=== PATIENT | female | born 1985 | race African-American/Black ===

== ENCOUNTER 2018-08-08 08:43 | Emergency (ER) | payer BC ==
[~2018-08-08] VITALS: Ht 172.7 cm; Wt 95.7 kg
[~2018-08-08 08:43] MED LIST: AFRIN15 ML NS; DOXYCYCLINE 10100 MG PO; FIORICET 50-321 EACH PO; LORATIDINE 10 M10 M1 PO; MEDROLDOSEPACK PO; NAPROSYN500 MG PO; NOHOMEMEDICATIONS; PREDNISONE50 MG PO; TESSALON PERLE100 MG PO; ULTRAM 50MG TAB50 MG PO; ZPAK PO
[2018-08-08 09:12] VITALS: BP 146/98
--- NOTE | 2018-08-08 17:03 | EKG ---
[place] [address] ELECTROCARDIOGRAM REPORT Name: YANET NEUMANN Room: [facility] [place]#: [id number] Admission: 08/08/18 Attend Phys: Discharge: 08/08/18 Date of : 81 Report #: [id number] THIS REPORT FOR: //name// [facility] ED Test Date: 2018-08-08 Test Time: 08:53:29 Pat Name: YANET NEUMANN Department: Room: Gender: F Organizational Development Director: Caitlin BUCKLEY : 1985 Requested By: Oleksandr Higginbotham Order Number: [id number] MD: Reji Sue Measurements Intervals [place] Rate: 57 P: 49 VT: 209 QRS: 1 QRSD: 90 T: -1 QT: 417 QTc: 406 Interpretive Statements Sinus rhythm LVH by voltage Borderline T abnormalities, diffuse leads Baseline wander in lead(s) V5 Compared to ECG 11/26/2012 11:48:43 Left ventricular hypertrophy now present T-wave abnormality still present Electronically Signed On 08-08-2018 17:03:03 CDT by Reji Sue [email or web address] <ELECTRONICALLY SIGNED> By: Reji Sue MD, FACC 08/08/18 1703 0853 0853 Reji Sue MD, FAC /EPI
[2018-08-28] MEDS ORDERED: PROMETH-CODEIN 65 ML PO (05:09)
== END 2018-08-08 09:14 | disposition home or self-care (01) ==
LOC: M.ERS 08:43
DX: R51 Headache (principal); R03.0 Elevated blood-pressure reading, without diagnosis of hypertension; R07.9 Chest pain, unspecified; M25.519 Pain in unspecified shoulder; R06.02 Shortness of breath

== ENCOUNTER → 2018-08-28 | Emergency (ER) | payer BC ==
[~2018-08-28] VITALS: Ht 172.7 cm; Wt 104.3 kg
[~2018-08-28] MED LIST changes: +PROMETH-CODEIN 65 ML PO
[2018-08-28 04:54] VITALS: BP 164/100
== END ==
LOC: M.ERS 04:51
DX: J06.9 Acute upper respiratory infection, unspecified (principal); G43.909 Migraine, unspecified, not intractable, without status migrainosus; Z98.890 Other specified postprocedural states

== ENCOUNTER 2018-09-20 12:25 | Emergency (ER) | payer OTHER ==
[~2018-09-20] VITALS: Ht 172.7 cm; Wt 95.3 kg
[2018-09-20] MEDS ORDERED: ERYTHROMYCIN E3.5 G3 OPHTHALMIC (12:57)
[2018-09-20 13:10] VITALS: BP 136/101
[2018-09-20] MEDS ORDERED: OFLOXACIN5 M1 OTIC (13:23)
== END 2018-09-20 13:10 | disposition home or self-care (01) ==
LOC: M.ERS 12:25
DX: S05.02XA Injury of conjunctiva and corneal abrasion without foreign body, left eye, initial encounter (principal); G43.909 Migraine, unspecified, not intractable, without status migrainosus; Z98.890 Other specified postprocedural states; X58.XXXA Exposure to other specified factors, initial encounter; Y93.89 Activity, other specified; Y92.89 Other specified places as the place of occurrence of the external cause; Y99.8 Other external cause status

== ENCOUNTER 2019-01-17 04:39 | Emergency (ER) | payer OTHER ==
[~2019-01-17] VITALS: Ht 172.7 cm; Wt 109.8 kg
[~2019-01-17 04:39] MED LIST changes: +ERYTHROMYCIN E3.5 G3 OPHTHALMIC; +OFLOXACIN5 M1 OTIC
[2019-01-17] MEDS ORDERED: IRON325 (04:46)
[2019-01-17] MEDS ORDERED: AMOXICILLIN875 MG PO (05:06)
[2019-01-17 05:25] VITALS: BP 166/108
== END 2019-01-17 05:25 | disposition home or self-care (01) ==
LOC: M.ERS 04:39
DX: R59.0 Localized enlarged lymph nodes (principal); G43.909 Migraine, unspecified, not intractable, without status migrainosus

== ENCOUNTER 2019-05-01 12:35 | Emergency (ER) | payer OTHER ==
[~2019-05-01] VITALS: Ht 172.7 cm; Wt 109.8 kg
[~2019-05-01 12:35] MED LIST changes: +AMOXICILLIN875 MG PO; +IRON325
[2019-05-01 13:12] LABS: ABSOLUTE EOSINOPHILS 0.2 thou/uL (0.0-0.7); ABSOLUTE LYMPHOCYTES 2.5 thou/uL (0.8-5.3); ABSOLUTE MONOCYTES 0.6 thou/uL (0.0-1.2); ABSOLUTE NEUTROPHILS 2.6 thou/uL (1.6-8.1); BASOPHILS 0.3 %; EOSINOPHILS 3.7 %; HEMATOCRIT 33.9 % (37.0-47.0); HEMOGLOBIN 10.4 gm/dL (12.0-15.0); LYMPHOCYTES 41.9 %; MCH 22.3 pg (26.0-34.0); MCHC 30.6 g/dL (28.0-37.0); MCV 72.8 fL (80.0-100.0); MONOCYTES 10.3 %; MPV 6.8 fl. (7.2-11.1); NUCLEATED RBCS 0 /100WBC; PLATELET COUNT* 435 thou/uL (150-400); POLYS 43.8 %; RBC 4.65 mil/uL (4.20-5.00); RDW-CV 18.2 % (10.5-14.5)
[2019-05-01 13:20] LABS: ANION GAP 9 mmol/L (7-16); BUN 12 mg/dL (7-18); CALCIUM 8.6 mg/dL (8.5-10.1); CHLORIDE 105 mmol/L (98-107); CO2 25 mmol/L (21-32); CREATININE 0.7 mg/dL (0.6-1.3); GLUCOSE 87 mg/dL (70-99); POTASSIUM 3.8 mmol/L (3.5-5.1); SODIUM 139 mmol/L (136-145)
[2019-05-01 13:29] LABS: ALBUMIN 3.6 g/dL (3.4-5.0); ALKALINE PHOSPHATASE 104 U/L (46-116); SGOT 13 U/L (15-37); SGPT 18 U/L (30-65); TOTAL BILIRUBIN 0.4 mg/dL (<0.1-1.0); TOTAL PROTEIN 7.4 g/dL (6.4-8.2); TROPONIN-I LEVEL <0.06 ng/mL (<0.06)
[2019-05-01 13:31] LABS: ANISOCYTOSIS 1+
[2019-05-01 13:32] LABS: HYPOCHROMASIA 1+; MICROCYTES 1+
[2019-05-01] MEDS ORDERED: CLARITIN10 MG PO (13:58)
[2019-05-01] MEDS ORDERED: PROAIR HFA8.5 GM INH (13:58)
[2019-05-01] MEDS ORDERED: MOBIC7.5 MG PO (13:59)
[2019-05-01 14:15] VITALS: BP 146/104
--- NOTE | 2019-05-01 16:38 | EKG ---
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: : 1985 Requested By: Nora Moon Order Number: [id number] MD: Reji Seu Measurements Intervals [place] Rate: 60 P: 30 [place]: 213 QRS: -5 QRSD: 101 T: -10 QT: 435 QTc: 435 Interpretive Statements Sinus rhythm Prolonged [place] interval Left ventricular hypertrophy, by voltage Borderline T abnormalities, diffuse leads Compared to ECG 04/14/2019 21:46:02 First degree AV block now present T-wave abnormality still present Electronically Signed On 05-01-2019 16:38:36 CDT by Reji Sue [email or web address] <ELECTRONICALLY SIGNED> By: Reji Sue MD, FAC 05/01/19 1638 1324 1324 Reji Sue MD, [facility] /EPI
== END 2019-05-01 14:16 | disposition home or self-care (01) ==
LOC: M.ERS 12:35
PROVIDERS: Physician Assistant
DX: M25.511 Pain in right shoulder (principal); R06.00 Dyspnea, unspecified; G43.909 Migraine, unspecified, not intractable, without status migrainosus; Z98.51 Tubal ligation status; Z90.710 Acquired absence of both cervix and uterus; Z86.2 Personal history of diseases of the blood and blood-forming organs and certain disorders involving the immune mechanism

== ENCOUNTER 2019-07-14 00:03 | Emergency (ER) | payer OTHER ==
[~2019-07-14] VITALS: Ht 170.2 cm; Wt 99.8 kg
[~2019-07-14 00:03] MED LIST changes: +CLARITIN10 MG PO; +MOBIC7.5 MG PO; +PROAIR HFA8.5 GM INH
[2019-07-14 00:22] LABS: URINE BILIRUBIN NEGATIVE (Negative); URINE BLOOD NEGATIVE (Negative); URINE CLARITY CLEAR; URINE COLOR YELLOW; URINE GLUCOSE-RANDOM NEGATIVE (Negative); URINE KETONES TRACE (Negative); URINE LEUKOCYTES-REFLEX NEGATIVE (Negative); URINE NITRITE-REFLEX NEGATIVE (Negative); URINE PROTEIN NEGATIVE (Negative); URINE SPECIFIC GRAVITY >= 1.030 (1.005-1.030); URINE UROBILINOGEN 0.2 E.U./dl (0.2-1.0)
[2019-07-14 00:42] VITALS: BP 146/92
== END 2019-07-14 00:42 | disposition home or self-care (01) ==
LOC: M.ERS 00:03
PROVIDERS: Family Medicine
DX: R10.30 Lower abdominal pain, unspecified (principal); G43.909 Migraine, unspecified, not intractable, without status migrainosus; Z98.51 Tubal ligation status; Z90.710 Acquired absence of both cervix and uterus; Z86.2 Personal history of diseases of the blood and blood-forming organs and certain disorders involving the immune mechanism

== ENCOUNTER 2019-12-20 21:41 | Emergency (ER) | payer OTHER ==
[~2019-12-20] VITALS: Ht 172.7 cm; Wt 108.9 kg
[2019-12-20] MEDS ORDERED: LISINOPRIL5 MG PO (21:50)
[2019-12-20 22:42] LABS: ABSOLUTE EOSINOPHILS 0.1 thou/uL (0.0-0.7); ABSOLUTE MONOCYTES 0.3 thou/uL (0.0-1.2); ABSOLUTE NEUTROPHILS 2.1 thou/uL (1.6-8.1); BASOPHILS 0.9 %; HEMATOCRIT 39.8 % (37.0-47.0); HEMOGLOBIN 12.9 gm/dL (12.0-15.0); LYMPHOCYTES 43.7 %; MCHC 32.5 g/dL (28.0-37.0); MONOCYTES 6.5 %; MPV 7.6 fl. (7.2-11.1); NUCLEATED RBCS 0 /100WBC; PLATELET COUNT* 322 thou/uL (150-400); POLYS 46.9 %; RBC 4.62 mil/uL (4.20-5.00); RDW-CV 14.7 % (10.5-14.5); WBC 4.5 thou/uL (4.0-11.0)
[2019-12-20 22:46] LABS: CALCIUM 8.4 mg/dL (8.5-10.1); CREATININE 0.8 mg/dL (0.6-1.3); POTASSIUM 3.7 mmol/L (3.5-5.1)
[2019-12-20 22:51] LABS: ALBUMIN 3.4 g/dL (3.4-5.0); TOTAL BILIRUBIN 0.3 mg/dL (<0.1-1.0); TOTAL PROTEIN 6.8 g/dL (6.4-8.2)
[2019-12-20] MEDS ORDERED: HYDROCHLOROTHIA25 M1 PO (23:50)
[2019-12-21 00:02] VITALS: BP 166/102
--- NOTE | 2019-12-21 16:32 | EKG ---
[place] [address] ELECTROCARDIOGRAM REPORT Name: YANET NEUMANN Room: 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: ALONSO : 1985 Requested By: Purnima Banda Order Number: [id number] MD: Reji Sue Measurements Intervals [place] Rate: 57 P: 34 [place]: 206 QRS: -5 QRSD: 97 T: -10 QT: 435 QTc: 424 Interpretive Statements Sinus rhythm Borderline prolonged [place] interval Left ventricular hypertrophy, by voltage Borderline T abnormalities, diffuse leads Compared to ECG 05/01/2019 13:24:38 No significant changes Electronically Signed On 12-21-2019 16:30:59 CDT by Reji Sue [email or web address] <ELECTRONICALLY SIGNED> By: Reji Sue MD, FACC 12/21/19 1630 2154 215 Reji Sue MD, [facility] /EPI
== END 2019-12-21 00:02 | disposition home or self-care (01) ==
LOC: M.ERS 21:41
PROVIDERS: Personal Emergency Response Attendant
DX: I10 Essential (primary) hypertension (principal); G43.909 Migraine, unspecified, not intractable, without status migrainosus; Z90.710 Acquired absence of both cervix and uterus; Z86.2 Personal history of diseases of the blood and blood-forming organs and certain disorders involving the immune mechanism; Z98.51 Tubal ligation status

== ENCOUNTER 2020-01-15 04:12 | Emergency (ER) | payer OTHER ==
[~2020-01-15] VITALS: Ht 172.7 cm; Wt 108.9 kg
[~2020-01-15 04:12] MED LIST changes: +HYDROCHLOROTHIA25 M1 PO; +LISINOPRIL5 MG PO
[2020-01-15 05:03] LABS: ABSOLUTE LYMPHOCYTES 1.2 thou/uL (0.8-5.3); ABSOLUTE MONOCYTES 0.2 thou/uL (0.0-1.2); BASOPHILS 0.5 %; EOSINOPHILS 0.1 %; HEMATOCRIT 42.2 % (37.0-47.0); HEMOGLOBIN 13.9 gm/dL (12.0-15.0); LYMPHOCYTES 48.7 %; MCH 28.2 pg (26.0-34.0); MCV 85.3 fL (80.0-100.0); MONOCYTES 9.1 %; MPV 7.6 fl. (7.2-11.1); NUCLEATED RBCS 0 /100WBC; PLATELET COUNT* 277 thou/uL (150-400); POLYS 41.6 %; RBC 4.95 mil/uL (4.20-5.00); RDW-CV 14.1 % (10.5-14.5); WBC 2.5 thou/uL (4.0-11.0)
[2020-01-15 05:12] LABS: PROTIME 10.4 Seconds (9.20-11.50)
[2020-01-15 05:18] LABS: ANION GAP 10 mmol/L (7-16); BUN 8 mg/dL (7-18); CALCIUM 7.8 mg/dL (8.5-10.1); CHLORIDE 102 mmol/L (98-107); CO2 25 mmol/L (21-32); CREATININE 0.9 mg/dL (0.6-1.3); GLUCOSE 109 mg/dL (70-99); POTASSIUM 3.2 mmol/L (3.5-5.1); SODIUM 137 mmol/L (136-145)
[2020-01-15 05:30] LABS: ALBUMIN 3.3 g/dL (3.4-5.0); ALKALINE PHOSPHATASE 94 U/L (46-116); MAGNESIUM 1.8 mg/dL (1.8-2.4); NT-PRO BRAIN NAT PEPTIDE 57 pg/mL (<300); SGOT 35 U/L (15-37); SGPT 26 U/L (30-65); TOTAL BILIRUBIN 0.4 mg/dL (<0.1-1.0); TOTAL PROTEIN 7.2 g/dL (6.4-8.2)
[2020-01-15 06:09] LABS: URINE BILIRUBIN NEGATIVE (Negative); URINE BLOOD TRACE (Negative); URINE CLARITY CLEAR; URINE COLOR YELLOW; URINE GLUCOSE-RANDOM NEGATIVE (Negative); URINE KETONES 2+ (Negative); URINE LEUKOCYTES-REFLEX NEGATIVE (Negative); URINE NITRITE-REFLEX NEGATIVE (Negative); URINE PROTEIN 3+ (Negative)
[2020-01-15] MEDS ORDERED: PROAIR HFA8.5 GM INH (06:19)
[2020-01-15] MEDS ORDERED: AZITHROMYCIN 2250 MG PO (06:19)
[2020-01-15] MEDS ORDERED: AEROCHAMBER PL1 EACH PO (06:19)
[2020-01-15 06:21] LABS: CASTS None Seen /LPF (None Seen); CRYSTALS None Seen /LPF (None Seen); MUCUS 4-6 Moderate strn/LPF (None Seen); SQUAMOUS >10 Many /LPF (0-3); URINE RBC 3-10 Few /HPF (0-2); URINE WBC-REFLEX 0-5 Rare /HPF (0-5)
[2020-01-15 07:15] VITALS: BP 126/83
--- NOTE | 2020-01-15 09:56 | EKG ---
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 In: : 1985 Requested By: Shanita York Order Number: [id number] MD: Luis Torres Measurements Intervals [place] Rate: 94 P: 60 [place]: 168 QRS: 1 QRSD: 91 T: -7 QT: 338 QTc: 423 Interpretive Statements Sinus rhythm Probable left atrial enlargement Borderline T abnormalities, anterior leads Baseline wander in lead(s) V1,V2 Compared to ECG 12/20/2019 21:54:23 Left ventricular hypertrophy no longer present T-wave abnormality still present Electronically Signed On 01-15-2020 9:54:34 CDT by Luis Torres [email or web address] <ELECTRONICALLY SIGNED> By: Luis Torres MD, [facility] 01/15/20 0954 0430 0430 Luis Torres MD, [facility] /EPI
== END 2020-01-15 07:18 | disposition home or self-care (01) ==
LOC: M.ERS 04:12
PROVIDERS: Emergency Medicine
DX: Z03.818 Encounter for observation for suspected exposure to other biological agents ruled out (principal); J06.9 Acute upper respiratory infection, unspecified; M79.651 Pain in right thigh; I10 Essential (primary) hypertension; G43.909 Migraine, unspecified, not intractable, without status migrainosus; Z98.51 Tubal ligation status; Z90.710 Acquired absence of both cervix and uterus; Z86.2 Personal history of diseases of the blood and blood-forming organs and certain disorders involving the immune mechanism

== ENCOUNTER 2020-01-19 08:41 | Inpatient (IN) | payer OTHER ==
[~2020-01-19] VITALS: Ht 172.7 cm; Wt 111.1 kg
[~2020-01-19 08:41] MED LIST changes: +AEROCHAMBER PL1 EACH PO; +AZITHROMYCIN 2250 MG PO
[2020-01-19 08:56] VITALS: BP 135/91
[2020-01-19 09:40] LABS: ABSOLUTE MONOCYTES 0.4 thou/uL (0.0-1.2); ABSOLUTE NEUTROPHILS 3.6 thou/uL (1.6-8.1); BASOPHILS 0.3 %; HEMATOCRIT 42.1 % (37.0-47.0); HEMOGLOBIN 13.9 gm/dL (12.0-15.0); LYMPHOCYTES 19.4 %; MCH 28.2 pg (26.0-34.0); MCV 85.3 fL (80.0-100.0); MONOCYTES 8.4 %; MPV 7.3 fl. (7.2-11.1); NUCLEATED RBCS 0 /100WBC; PLATELET COUNT* 319 thou/uL (150-400); POLYS 71.9 %; RBC 4.93 mil/uL (4.20-5.00); RDW-CV 13.9 % (10.5-14.5); WBC 5.1 thou/uL (4.0-11.0)
[2020-01-19 09:47] LABS: CALCIUM 7.8 mg/dL (8.5-10.1); POTASSIUM 3.5 mmol/L (3.5-5.1)
[2020-01-19 09:52] LABS: ALBUMIN 2.6 g/dL (3.4-5.0); MAGNESIUM 2.1 mg/dL (1.8-2.4); TOTAL BILIRUBIN 0.4 mg/dL (<0.1-1.0); TOTAL PROTEIN 6.9 g/dL (6.4-8.2)
[2020-01-19 10:09] LABS: BE 0.8 mmol/L (-2 to +3); PCO2 33.7 mmHg (35.0-45.0); PO2 66.1 mmHg (75.0-100.0); pH 7.469 (7.340-7.450)
[2020-01-19 12:29] VITALS: BP 129/92
[2020-01-19 12:30] VITALS: BP 122/80
[2020-01-19 16:00] VITALS: BP 137/97
--- NOTE | 2020-01-19 16:31 | EKG ---
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: ANAHY : 1985 Requested By: Purnima Banda Order Number: [id number] Ana MD: Joss Henry Measurements Intervals [place] Rate: 97 P: 51 NE: 166 QRS: -3 QRSD: 97 T: -12 QT: 340 QTc: 432 Interpretive Statements Sinus rhythm Left ventricular hypertrophy Possible anterior infarct, age indeterminate Compared to ECG 01/15/2020 04:30:58 Left ventricular hypertrophy now present Myocardial infarct finding now present T-wave abnormality no longer present Electronically Signed On 01-19-2020 16:29:26 CDT by Joss Henry [email or web address] <ELECTRONICALLY SIGNED> By: Joss Henry MD, [facility] 01/19/20 1629 9 09 Joss Henry MD, FAC /EPI
[2020-01-19 19:45] VITALS: BP 140/98
[2020-01-20] VITALS: BP 141/89
[2020-01-20 04:00] VITALS: BP 118/82
[2020-01-20 08:32] VITALS: BP 135/100
[2020-01-20 10:14] LABS: ABSOLUTE LYMPHOCYTES 1.6 thou/uL (0.8-5.3); ABSOLUTE MONOCYTES 0.5 thou/uL (0.0-1.2); ABSOLUTE NEUTROPHILS 2.6 thou/uL (1.6-8.1); BASOPHILS 0.2 %; HEMATOCRIT 39.5 % (37.0-47.0); LYMPHOCYTES 33.2 %; MCH 28.2 pg (26.0-34.0); MCHC 32.8 g/dL (28.0-37.0); MCV 85.8 fL (80.0-100.0); MONOCYTES 10.8 %; MPV 7.5 fl. (7.2-11.1); NUCLEATED RBCS 0 /100WBC; PLATELET COUNT* 331 thou/uL (150-400); POLYS 55.8 %; RDW-CV 14.2 % (10.5-14.5); WBC 4.7 thou/uL (4.0-11.0)
[2020-01-20 10:17] LABS: URINE BILIRUBIN NEGATIVE (Negative); URINE BLOOD 1+ (Negative); URINE CLARITY CLEAR; URINE COLOR YELLOW; URINE GLUCOSE-RANDOM NEGATIVE (Negative); URINE KETONES NEGATIVE (Negative); URINE LEUKOCYTES-REFLEX NEGATIVE (Negative); URINE NITRITE-REFLEX NEGATIVE (Negative); URINE PROTEIN 3+ (Negative)
[2020-01-20 10:26] LABS: ALBUMIN 2.1 g/dL (3.4-5.0); CALCIUM 7.3 mg/dL (8.5-10.1); CREATININE 0.7 mg/dL (0.6-1.3); PHOSPHORUS* 2.6 mg/dL (2.5-4.9); POTASSIUM 3.4 mmol/L (3.5-5.1)
[2020-01-20 10:39] LABS: CASTS None Seen /LPF (None Seen); CRYSTALS None Seen /LPF (None Seen); MUCUS 0-3 Light strn/LPF (None Seen); SQUAMOUS >10 Many /LPF (0-3); URINE RBC 3-10 Few /HPF (0-2); URINE WBC-REFLEX 0-5 Rare /HPF (0-5)
[2020-01-20 11:53] VITALS: BP 134/95
--- NOTE | 2020-01-20 15:40 | EKG ---
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1985 Requested By: Ca Correa Order Number: [id number] Reading MD: Joss Henry Measurements Intervals [place] Rate: 87 P: 47 [place]: 177 QRS: -8 QRSD: 93 T: -20 QT: 376 QTc: 453 Interpretive Statements Sinus rhythm Probable left atrial enlargement Left ventricular hypertrophy Borderline T abnormalities, diffuse leads Baseline wander in lead(s) V1 Compared to ECG 01/19/2020 09:00:22 T-wave abnormality now present Myocardial infarct finding no longer present Electronically Signed On 01-20-2020 15:39:07 CDT by Joss Henry [email or web address] <ELECTRONICALLY SIGNED> By: Joss Henry MD, [facility] 01/20/20 1539 Joss Henry MD, [facility] /EPI
[2020-01-20 16:44] VITALS: BP 120/88
[2020-01-20 21:00] VITALS: BP 115/71
[2020-01-21 00:03] VITALS: BP 133/91
[2020-01-21 04:34] VITALS: BP 123/72
[2020-01-21 06:32] LABS: HEMATOCRIT 40.3 % (37.0-47.0); HEMOGLOBIN 13.1 gm/dL (12.0-15.0); MCH 27.7 pg (26.0-34.0); MCHC 32.5 g/dL (28.0-37.0); MCV 85.2 fL (80.0-100.0); MPV 7.2 fl. (7.2-11.1); RBC 4.72 mil/uL (4.20-5.00); RDW-CV 14.1 % (10.5-14.5); WBC 4.3 thou/uL (4.0-11.0)
[2020-01-21 06:53] LABS: ALBUMIN 1.9 g/dL (3.4-5.0); CALCIUM 7.7 mg/dL (8.5-10.1); CREATININE 0.8 mg/dL (0.6-1.3); MAGNESIUM 2.1 mg/dL (1.8-2.4); PHOSPHORUS* 3.4 mg/dL (2.5-4.9); POTASSIUM 3.5 mmol/L (3.5-5.1)
[2020-01-21 08:47] VITALS: BP 127/93
[2020-01-21 11:43] VITALS: BP 136/99
[2020-01-21 17:03] VITALS: BP 126/91
[2020-01-21 19:30] VITALS: BP 127/86
[2020-01-22] VITALS: BP 138/96
[2020-01-22 04:00] VITALS: BP 126/84
[2020-01-22 05:08] LABS: HEMATOCRIT 42.7 % (37.0-47.0); MCH 27.9 pg (26.0-34.0); MCHC 32.8 g/dL (28.0-37.0); MCV 85.2 fL (80.0-100.0); MPV 7.4 fl. (7.2-11.1); RBC 5.01 mil/uL (4.20-5.00); RDW-CV 13.9 % (10.5-14.5); WBC 3.5 thou/uL (4.0-11.0)
[2020-01-22 05:29] LABS: ALBUMIN 1.9 g/dL (3.4-5.0); CALCIUM 8.7 mg/dL (8.5-10.1); CREATININE 0.9 mg/dL (0.6-1.3); MAGNESIUM 2.3 mg/dL (1.8-2.4); PHOSPHORUS* 4.1 mg/dL (2.5-4.9); POTASSIUM 3.6 mmol/L (3.5-5.1)
[2020-01-22 09:02] VITALS: BP 124/92
[2020-01-22 12:00] VITALS: BP 149/109
--- NOTE | 2020-01-22 14:58 | EKG ---
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: : 1985 Requested By: Ca Correa Order Number: [id number] Ana MD: Joss Henry Measurements Intervals [place] Rate: 83 P: 56 [place]: 175 QRS: -8 QRSD: 98 T: -36 QT: 413 QTc: 486 Interpretive Statements Sinus rhythm Probable left ventricular hypertrophy Borderline T abnormalities, diffuse leads Borderline prolonged QT interval Compared to ECG 01/20/2020 08:39:31 No significant changes Electronically Signed On 01-22-2020 14:57:26 CDT by Joss Henry [email or web address] <ELECTRONICALLY SIGNED> By: Joss Henry MD, [facility] 01/22/20 1457 1605 1605 Joss Henry MD, [facility] /EPI
[2020-01-22 16:59] VITALS: BP 129/108
[2020-01-22 20:30] VITALS: BP 135/88
[2020-01-23] VITALS: BP 138/97
[2020-01-23 04:00] VITALS: BP 140/99
[2020-01-23 05:06] LABS: HEMOGLOBIN 13.4 gm/dL (12.0-15.0); MCH 28.1 pg (26.0-34.0); MCHC 33.4 g/dL (28.0-37.0); MPV 6.8 fl. (7.2-11.1); RBC 4.77 mil/uL (4.20-5.00); RDW-CV 13.7 % (10.5-14.5)
[2020-01-23 05:14] LABS: CALCIUM 8.2 mg/dL (8.5-10.1); CREATININE 0.8 mg/dL (0.6-1.3); PHOSPHORUS* 4.1 mg/dL (2.5-4.9); POTASSIUM 3.2 mmol/L (3.5-5.1)
[2020-01-23 10:43] VITALS: BP 138/100
[2020-01-23] MEDS ORDERED: XANAX 0.5 MG0.5 MG PO (13:26)
[2020-01-23] MEDS ORDERED: SENNA-TIME S T1 EACH PO (13:26)
[2020-01-23] MEDS ORDERED: LEVAQUIN 750 M750 MG PO (13:26)
[2020-01-23] MEDS ORDERED: VITAMIN C1000 MG PO (13:26)
[2020-01-23] MEDS ORDERED: PAIN RELIEVER500 MG PO (13:26)
[2020-01-23] MEDS ORDERED: ZINC SULFATE 2220 MG PO (13:26)
[2020-01-23] MEDS ORDERED: PROBIOTIC1 EAC1 PO (13:26)
[2020-01-23] MEDS ORDERED: MUCINEX600 MG PO (13:26)
--- NOTE | 2020-01-23 14:41 | EKG ---
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1985 Requested By: Ca Correa Order Number: [id number] Ana MD: Luis Torres Measurements Intervals [place] Rate: 73 P: 51 SD: 195 QRS: -6 QRSD: 96 T: -22 QT: 432 QTc: 476 Interpretive Statements Sinus rhythm Probable left atrial enlargement Nonspecific T abnormalities, inferior leads Borderline prolonged QT interval Compared to ECG 01/21/2020 16:05:03 No significant changes Electronically Signed On 01-23-2020 14:39:44 CDT by Luis Torres [email or web address] <ELECTRONICALLY SIGNED> By: Luis Torres MD, FAC 01/23/20 1439 1557 1557 Luis Torres MD, FAC /EPI
[2020-01-23 16:09] VITALS: BP 138/100
[2020-01-23 16:23] VITALS: BP 143/92
== END 2020-01-23 17:45 | disposition home or self-care (01) | DRG 871 ==
LOC: M.ERS 08:41 → M.ORTHSURG 10:58 → M.TBA-ER 10:58 → M.ORTHSURG 12:10
PROVIDERS: Personal Emergency Response Attendant; ADMIT Family Medicine
DX: A41.9 Sepsis, unspecified organism (principal); J18.9 Pneumonia, unspecified organism; E44.0 Moderate protein-calorie malnutrition; G43.909 Migraine, unspecified, not intractable, without status migrainosus; I10 Essential (primary) hypertension; E87.6 Hypokalemia; Z20.828 Contact with and (suspected) exposure to other viral communicable diseases; Z90.710 Acquired absence of both cervix and uterus; Z82.49 Family history of ischemic heart disease and other diseases of the circulatory system; Z68.37 Body mass index [BMI] 37.0-37.9, adult

== ENCOUNTER 2020-07-08 12:44 | Inpatient (IN) | payer BC ==
[~2020-07-08] VITALS: Ht 170.2 cm; Wt 115.7 kg
[~2020-07-08 12:44] MED LIST changes: +LEVAQUIN 750 M750 MG PO; +MUCINEX600 MG PO; +PAIN RELIEVER500 MG PO; +PROBIOTIC1 EAC1 PO; +SENNA-TIME S T1 EACH PO; +VITAMIN C1000 MG PO; +XANAX 0.5 MG0.5 MG PO; +ZINC SULFATE 2220 MG PO
[2020-07-08 12:50] VITALS: BP 204/126
[2020-07-08 13:12] LABS: ABSOLUTE BASOPHILS 0.1 thou/uL (0.0-0.2); ABSOLUTE EOSINOPHILS 0.1 thou/uL (0.0-0.7); ABSOLUTE LYMPHOCYTES 2.3 thou/uL (0.8-5.3); ABSOLUTE MONOCYTES 0.5 thou/uL (0.0-1.2); ABSOLUTE NEUTROPHILS 3.4 thou/uL (1.6-8.1); BASOPHILS 1.2 %; EOSINOPHILS 0.9 %; HEMATOCRIT 41.5 % (37.0-47.0); HEMOGLOBIN 13.8 gm/dL (12.0-15.0); LYMPHOCYTES 36.9 %; MCH 29.6 pg (26.0-34.0); MCHC 33.3 g/dL (28.0-37.0); MCV 88.8 fL (80.0-100.0); MONOCYTES 8.1 %; MPV 7.1 fl. (7.2-11.1); NUCLEATED RBCS 0 /100WBC; PLATELET COUNT* 298 thou/uL (150-400); POLYS 52.9 %; RBC 4.67 mil/uL (4.20-5.00); RDW-CV 12.7 % (10.5-14.5); WBC 6.3 thou/uL (4.0-11.0)
[2020-07-08 13:15] LABS: PROTIME 10.1 Seconds (9.20-11.50)
[2020-07-08 13:17] LABS: CREATININE 1.1 mg/dL (0.6-1.3); POTASSIUM 3.7 mmol/L (3.5-5.1)
[2020-07-08 13:21] LABS: ALBUMIN 3.9 g/dL (3.4-5.0); TOTAL BILIRUBIN 0.4 mg/dL (<0.1-1.0); TOTAL PROTEIN 7.7 g/dL (6.4-8.2)
--- NOTE | 2020-07-08 16:24 | EKG ---
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 : 1985 Requested By: Brad Connors Order Number: [id number] MD: Joss Henry Measurements Intervals [place] Rate: 71 P: 41 [place]: 190 QRS: -2 QRSD: 92 T: 4 QT: 383 QTc: 417 Interpretive Statements Sinus rhythm Left ventricular hypertrophy Compared to ECG 01/22/2020 15:57:38 Left ventricular hypertrophy now present T-wave abnormality no longer present Electronically Signed On 07-08-2020 16:23:53 CDT by Joss Henry [email or web address] <ELECTRONICALLY SIGNED> By: Joss Henry MD, FAC 07/08/20 1623 1254 1254 Joss Henry MD, [facility] /EPI
[2020-07-08 16:38] VITALS: BP 172/110
[2020-07-08 16:55] VITALS: BP 169/108
[2020-07-08 19:20] VITALS: BP 186/110
[2020-07-09] VITALS: BP 139/95
[2020-07-09 02:06] LABS: GLYCOHEMOGLOBIN (HGB A1C) 5.9 % (4.8-5.6)
[2020-07-09 04:00] VITALS: BP 198/121
[2020-07-09 04:59] LABS: HEMATOCRIT 42.6 % (37.0-47.0); HEMOGLOBIN 14.4 gm/dL (12.0-15.0); MCH 29.9 pg (26.0-34.0); MCHC 33.8 g/dL (28.0-37.0); MCV 88.6 fL (80.0-100.0); MPV 7.2 fl. (7.2-11.1); RBC 4.81 mil/uL (4.20-5.00); RDW-CV 12.9 % (10.5-14.5); WBC 5.7 thou/uL (4.0-11.0)
[2020-07-09 05:17] LABS: ANION GAP 11 mmol/L (7-16); BUN 12 mg/dL (7-18); CALCIUM 8.6 mg/dL (8.5-10.1); CHLORIDE 103 mmol/L (98-107); CHOLESTEROL 197 mg/dL (<200); CO2 24 mmol/L (21-32); CREATININE 1.1 mg/dL (0.6-1.3); GLUCOSE 90 mg/dL (70-99); HDL CHOLESTEROL 50 mg/dL (>40); LDL CHOLESTEROL 116 mg/dL (<100); MAGNESIUM 2.1 mg/dL (1.8-2.4); POTASSIUM 3.8 mmol/L (3.5-5.1); SERUM ASSESSMENT CLEAR; SODIUM 138 mmol/L (136-145); TC:HDL 3.9 Ratio (Not establshd); TRIGLYCERIDE 155 mg/dL (<150); VLDL 31 mg/dL (<40)
[2020-07-09 08:00] VITALS: BP 133/95
[2020-07-09 12:00] VITALS: BP 130/92
[2020-07-09 16:00] VITALS: BP 153/108
[2020-07-09 20:00] VITALS: BP 149/104
[2020-07-10] VITALS: BP 122/85
[2020-07-10 04:00] VITALS: BP 166/109
[2020-07-10 08:00] VITALS: BP 123/93
[2020-07-10] MEDS ORDERED: METOPROLOL TART25 MG PO (11:19)
[2020-07-10] MEDS ORDERED: LIPITOR10 MG PO (11:19)
[2020-07-10 12:00] VITALS: BP 148/108
[2020-07-10 12:57] VITALS: BP 148/108
--- NOTE | 2020-07-12 13:57 | 2DMMODE ---
[place] [address] 2 D/M-MODE ECHOCARDIOGRAM Name: YANET NEUMANN Room: [address] IN Nancy.Corinne.#: [id number] Admission: 07/09/20 Attend Phys: Randi Quinones, Discharge: 07/10/20 Date of : 81 Date of Service: 07/09/20 1458 Report #: [id number] THIS REPORT FOR: cc: [facility] - Clinic physician unknown [facility] - Clinic physician unknown Joss Henry MD [facility] ~ APPROVED REPORT Study performed: 07/09/2020 13:39:51 EXAM: Comprehensive 2D, Doppler, and color-flow Echocardiogram Patient Location: Bedside BSA: 2.32 HR: 93 bpm BP: 133/95 mmHg Other Information Study Quality: Technically Limited Technically limited study due to body habitus. Indications CVA/TIA Cardiomegaly Echo Enhancing Agent Indication: Rule out Shunt Agent(s) / Amount(s) Used: Agitated Saline cc 2D Dimensions IVSd: 13.25 (7-11mm) LVOT Diam: 20.57 (18-24mm) LVDd: 47.30 mm PWd: 12.01 (7-11mm) Ascending Ao: 26.67 (22-36mm) LVDs: 32.20 (25-40mm) Aortic Root: 28.56 mm Volumes Left Atrial Volume (Systole) LA ESV Index: 21.30 mL/m2 Aortic Valve AoV Peak Bertrand.: 0.79 m/s AO Peak Gr.: 2.48 mmHg LVOT Max P.22 mmHg AO Mean Gr.: 1.55 mmHg LVOT Mean P.08 [place] [address] 2 D/M-MODE ECHOCARDIOGRAM Name: YANET NEUMANN Room: [address] IN .R.#: [id number] Admission: 07/09/20 Attend Phys: Randi Quinones, Discharge: 07/10/20 Date of : 81 Date of Service: 07/09/20 1458 Report #: [id number] LVOT Max V: 0.75 m/s AO V2 VTI: 13.53 cm LVOT Mean V: 0.47 m/s SHANTE (VTI): 2.89 cm2 LVOT V1 VTI: 11.77 cm Mitral Valve E/A Ratio: 1.03 MV Decel. Time: 24.86 ms MV E Max Bertrand.: 0.48 m/s MV PHT: 7.21 ms MVA (PHT): 30.51 cm2 TDI E/Lateral E': 6.86 E/Medial E': 8.00 Medial E' Bertrand.: 0.06 m/s Lateral E' Bertrand.: 0.07 m/s Pulmonary Valve PV Peak Bertrand.: 0.94 m/s PV Peak Gr.: 3.54 mmHg Tricuspid Valve RAP Estimate: 5.00 mmHg TR Peak Gr.: 17.47 mmHg RVSP: 22.47 mmHg PA Pressure: 22.47 mmHg Left Ventricle The left ventricle is normal size. There is normal LV segmental wall motion. Borderline concentric left ventricular hypertrophy. Left ventricular systolic function is normal. The left ventricular ejection fraction is within the normal range. LVEF is 55-60%. Right Ventricle The right ventricle is normal size. The right ventricular systolic function is normal. Atria The left atrium size is normal. Interatrial septum not optimally visualized. Injection of bubbles documented no interatrial shunt. The right atrium size is normal. Aortic Valve The aortic valve is normal in structure. No aortic regurgitation is present. There is no aortic valvular stenosis. Mitral Valve The mitral valve is normal in structure. There is no mitral valve regurgitation noted. No evidence [place] [address] 2 D/M-MODE ECHOCARDIOGRAM Name: YANET NEUMANN Room: [address] IN M.R.#: [id number] Admission: 07/09/20 Attend Phys: Randi Quinones, Discharge: 07/10/20 Date of : 81 Date of Service: 07/09/20 1458 Report #: [id number] Tricuspid Valve The tricuspid valve is normal in structure. Trace tricuspid regurgitation. Pulmonic Valve The pulmonary valve is normal in structure. There is no pulmonic valvular regurgitation. Great Vessels The aortic root is normal in size. IVC is normal in size and collapses >50% with inspiration. Pericardium There is no pericardial effusion. <Conclusion> The left ventricle is normal size. Borderline concentric left ventricular hypertrophy. Left ventricular systolic function is normal. The left ventricular ejection fraction is within the normal range. LVEF is 55-60%. The right ventricle is normal size. The left atrium size is normal. The aortic valve is normal in structure. The mitral valve is normal in structure. The tricuspid valve is normal in structure. IVC is normal in size and collapses >50% with inspiration. There is no pericardial effusion. There is normal LV segmental wall motion. Interatrial septum not optimally visualized. Injection of bubbles documented no interatrial shunt. <ELECTRONICALLY SIGNED> By: Joss Henry MD, FACC 07/09/20 1458 1458 1458 Joss Henry MD, FACC /INF
== END 2020-07-10 13:25 | disposition home or self-care (01) | DRG 103 ==
LOC: M.ERS 12:44 → M.TBA-ER 15:29 → M.2W 17:04
PROVIDERS: Emergency Medicine Emergency Medical Services; ADMIT Internal Medicine; ATTEND Internal Medicine
DX: G43.809 Other migraine, not intractable, without status migrainosus (principal); I16.1 Hypertensive emergency; G81.94 Hemiplegia, unspecified affecting left nondominant side; I67.4 Hypertensive encephalopathy; R20.2 Paresthesia of skin; I11.9 Hypertensive heart disease without heart failure; E78.5 Hyperlipidemia, unspecified; Z20.828 Contact with and (suspected) exposure to other viral communicable diseases; E66.01 Morbid (severe) obesity due to excess calories; Z79.899 Other long term (current) drug therapy; Z68.39 Body mass index [BMI] 39.0-39.9, adult; Z90.710 Acquired absence of both cervix and uterus; Z23 Encounter for immunization

== ENCOUNTER 2020-10-24 20:36 | Emergency (ER) | payer OTHER ==
[~2020-10-24] VITALS: Ht 172.7 cm; Wt 111.6 kg
[~2020-10-24 20:36] MED LIST changes: +LIPITOR10 MG PO; +METOPROLOL TART25 MG PO
[2020-10-24] MEDS ORDERED: HYDROCHLOROTHIA25 M2 PO (20:43)
[2020-10-24] MEDS ORDERED: CLEOCIN HCL300 MG PO (20:51)
[2020-10-24 20:53] VITALS: BP 148/98
== END 2020-10-24 20:59 | disposition home or self-care (01) ==
LOC: M.ERS 20:36
DX: L03.011 Cellulitis of right finger (principal); I10 Essential (primary) hypertension; G43.909 Migraine, unspecified, not intractable, without status migrainosus; Z90.710 Acquired absence of both cervix and uterus; Z79.899 Other long term (current) drug therapy

== ENCOUNTER 2021-01-18 23:49 | Emergency (ER) | payer OTHER ==
[~2021-01-18] VITALS: Ht 172.7 cm; Wt 101.6 kg
[~2021-01-18 23:49] MED LIST changes: +CLEOCIN HCL300 MG PO; +HYDROCHLOROTHIA25 M2 PO
[2021-01-19] MEDS ORDERED: HYDROCODONE-CH115 ML PO (01:08)
[2021-01-19] MEDS ORDERED: PROAIR HFA8.5 GM INH (01:09)
[2021-01-19] MEDS ORDERED: PREDNISONE50 MG PO (01:09)
[2021-01-19] MEDS ORDERED: FLONASE 0.05%50 MCG NARES (01:10)
[2021-01-19 01:26] VITALS: BP 132/82
== END 2021-01-19 01:26 | disposition home or self-care (01) ==
LOC: M.ERS 23:49
DX: R05 Cough (principal); Z20.822 Contact with and (suspected) exposure to COVID-19; I10 Essential (primary) hypertension; G43.909 Migraine, unspecified, not intractable, without status migrainosus; Z86.73 Personal history of transient ischemic attack (TIA), and cerebral infarction without residual deficits; Z90.710 Acquired absence of both cervix and uterus

== ENCOUNTER 2021-10-11 17:57 | Emergency (ER) | payer OTHER ==
[~2021-10-11] VITALS: Ht 180.3 cm; Wt 113.4 kg
[~2021-10-11 17:57] MED LIST changes: +FLONASE 0.05%50 MCG NARES; +HYDROCODONE-CH115 ML PO
[2021-10-11 21:06] LABS: ABSOLUTE BASOPHILS 0.1 thou/uL (0.0-0.2); ABSOLUTE EOSINOPHILS 0.1 thou/uL (0.0-0.7); ABSOLUTE LYMPHOCYTES 1.8 thou/uL (0.8-5.3); ABSOLUTE MONOCYTES 0.5 thou/uL (0.0-1.2); BASOPHILS 1.1 %; EOSINOPHILS 1.8 %; HEMATOCRIT 41.7 % (37.0-47.0); HEMOGLOBIN 13.7 gm/dL (12.0-15.0); LYMPHOCYTES 33.4 %; MCH 28.5 pg (26.0-34.0); MCV 86.6 fL (80.0-100.0); MONOCYTES 9.1 %; MPV 6.8 fl. (7.2-11.1); NUCLEATED RBCS 0 /100WBC; PLATELET COUNT* 361 thou/uL (150-400); POLYS 54.6 %; RBC 4.82 mil/uL (4.20-5.00); RDW-CV 12.8 % (10.5-14.5); WBC 5.5 thou/uL (4.0-11.0)
[2021-10-11 21:10] LABS: CALCIUM 8.5 mg/dL (8.5-10.1); CREATININE 0.9 mg/dL (0.6-1.3); POTASSIUM 4.1 mmol/L (3.5-5.1)
[2021-10-11 21:21] LABS: ALBUMIN 3.5 g/dL (3.4-5.0); MAGNESIUM 2.1 mg/dL (1.8-2.4); TOTAL BILIRUBIN 0.4 mg/dL (<0.1-1.0); TOTAL PROTEIN 7.5 g/dL (6.4-8.2)
[2021-10-11] MEDS ORDERED: FLEXERIL PO (22:08)
[2021-10-11] MEDS ORDERED: VENTOLIN HFA 1818 GM INH (22:08)
[2021-10-11 22:48] VITALS: BP 155/106
--- NOTE | 2021-10-12 11:02 | EKG ---
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: TJO : 1985 Requested By: Mariely Musa Order Number: [id number] MD: Luis Torres Measurements Intervals [place] Rate: 91 P: 62 [place]: 169 QRS: -1 QRSD: 97 T: -8 QT: 355 QTc: 437 Interpretive Statements Sinus rhythm Left atrial enlargement Low voltage, precordial leads Left ventricular hypertrophy Borderline T abnormalities, diffuse leads Baseline wander in lead(s) I,II,aVR,V2 Compared to ECG 07/08/2020 12:54:36 Atrial abnormality now present Low QRS voltage now present Electronically Signed On 10-12-2021 11:02:46 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
== END 2021-10-11 22:48 | disposition home or self-care (01) ==
LOC: M.ERS 17:57
PROVIDERS: Nurse Practitioner Family
DX: U07.1 COVID-19 (principal); G43.909 Migraine, unspecified, not intractable, without status migrainosus; I10 Essential (primary) hypertension; Z90.710 Acquired absence of both cervix and uterus; Z79.51 Long term (current) use of inhaled steroids; Z79.899 Other long term (current) drug therapy

== ENCOUNTER 2021-12-02 01:51 | Emergency (ER) | payer OTHER ==
[~2021-12-02] VITALS: Ht 172.7 cm; Wt 99.8 kg
[~2021-12-02 01:51] MED LIST changes: +FLEXERIL PO; +VENTOLIN HFA 1818 GM INH
[2021-12-02] MEDS ORDERED: COZAAR 25 MG TA25 M1 PO (02:11)
[2021-12-02 03:43] VITALS: BP 161/101
== END 2021-12-02 03:45 | disposition home or self-care (01) ==
LOC: M.ERS 01:51
DX: G43.909 Migraine, unspecified, not intractable, without status migrainosus (principal); I10 Essential (primary) hypertension; Z90.710 Acquired absence of both cervix and uterus; Z79.51 Long term (current) use of inhaled steroids; Z79.899 Other long term (current) drug therapy